=== PATIENT | male | born 1995 | race Two or more races ===

== ENCOUNTER 2017-05-08 15:56 | Emergency (ER) | payer OTHER ==
[~2017-05-08] VITALS: Ht 177.8 cm; Wt 59.0 kg
[2017-05-08 16:06] VITALS: BP 136/69
--- NOTE | 2017-05-08 16:11 | PHYS DOC ---
Adult General Chief Complaint Chief Complaint: LACERATION/AVULSION [facility] HPI Patient is a 22 year old male presents to the emergency department with a history of laceration to the right leg. Patient states he had a cup that he was placing tea in it when the cup broke and cut his leg just above the knee. He has a 0.5 cm laceration with bleeding controlled. Patient states his last tetanus is less than 5 years. He denies numbness, tingling or change in sensation to the lower leg. Review of Systems Review of Systems Constitutional: Denies fever or chills [] Eyes: Denies change in visual acuity, redness, or eye pain [] HENT: Denies nasal congestion or sore throat [] Respiratory: Denies cough or shortness of breath [] Cardiovascular: No additional information not addressed in HPI [] GI: Denies abdominal pain, nausea, vomiting, bloody stools or diarrhea [] : Denies dysuria or hematuria [] Musculoskeletal: Denies back pain or joint pain [] Integument: Denies rash or skin lesions. Laceration right leg Neurologic: Denies headache, focal weakness or sensory changes [] Endocrine: Denies polyuria or polydipsia [] Current Medications Current Medications Current Medications Medications (Trade) Dose Ordered [facility] Start Time Stop Time Status Last Admin Dose Admin Lidocaine/Sodium Bicarbonate (Buffered Lidocaine 1%) 20 ml 1X ONCE 05/08/17 16:15 05/08/17 16:16 DC Allergies Allergies Allergies Coded Allergies Type Severity Reaction Last Updated Verified No Known Drug Allergies 05/08/17 No Physical Exam Physical Exam Constitutional: Well developed, well nourished, no acute distress, non-toxic appearance. [] HENT: Normocephalic, atraumatic, bilateral external ears normal, oropharynx moist, no oral exudates, nose normal. [] Eyes: PERRLA, EOMI, conjunctiva normal, no discharge. [] Neck: Normal range of motion, no tenderness, supple, no stridor. [] Cardiovascular:Heart rate regular rhythm [] Lungs & Thorax: no respiratory distress noted Skin: Warm, dry, no erythema, no rash. Laceration right leg just above the knee 0.5 cm in length gapping. Extremities: No tenderness, no cyanosis, no clubbing, ROM intact, no edema. Peripheral pulses 2+ to right lower leg. Neurologic: Alert and oriented X 3, normal motor function, normal sensory function, no focal deficits noted. [] Psychologic: Affect normal, judgement normal, mood normal. [] Current Patient Data Vital Signs Vital Signs Date Time Temp Pulse Resp B/P (MAP) Pulse Ox O2 Delivery O2 Flow Rate FiO2 05/08/17 16:06 98.2 86 18 99 Room Air 98.2 EKG EKG [] Radiology/Procedures Radiology/Procedures [] Course & Med Decision Making Course & Med Decision Making Pertinent Labs and Imaging studies reviewed. (See chart for details) Keep the area clean and dry. Clean the site with soap and water twice a day and apply antibiotic to the site. Watch for signs and symptoms of infection: redness , warmth or tenderness or any yellow/greenish drainage if this should develop followup with PCP immediately. Otherwise followup in 01-18 for suture removal. Sign and symptoms to return to the emergency department has been provided. Patient agrees with discharge instructions, treatment regimen and followup recommendations. All questions and concerns have been answered at patients bedside. [] Dragon Disclaimer Dragon Disclaimer This electronic medical record was generated, in whole or in part, using a voice recognition dictation system. Departure Departure Impression: Primary Impression: Laceration Disposition: 01 HOME, SELF-CARE Condition: STABLE Patient Instructions: Laceration Care, Adult, [id number] Additional Instructions: Activity as tolerated Keep the area clean and dry. Clean the site with soap and water twice a day and apply antibiotic to the site. Watch for signs and symptoms of infection: redness, warmth or tenderness or any yellow/greenish drainage if this should develop followup with primary care provider immediately. Otherwise followup in 01-18 for suture removal. Return to the emergency department as needed for signs and symptoms that become worse. Laceration/Wound Repair Laceration/Wound Repair : Wound Location: lower extremity Wound's Depth, Shape: superficial Wound Length (cm): 0 Wound Explored: no foreign body removed Irrigated w/ Saline (ccs): 100 Betadine Prep?: Yes Anesthesia: 1% Lidocaine Volume Anesthetic (ccs): 4 Wound Debrided: minimal Wound Repaired With: sutures Suture Size/Type: 4:0, nylon Number of Sutures: 3 Progress 1% buffered lidocaine injected into the area 4 ml. Site irrigated with 100 ml NS with no foreign body noted. Site cleaned with betadine. Suture the area with 4-0 nylon with 3 interrupted sutures placed. Patient tolerated procedure well. Dressing applied by nursing staff. LINDA SANCHEZ APRN May 08, 2017 16:11
[2017-05-08] MEDS ORDERED: LIDOCAINE 1% / SOD BICARB 8.4% 20 ML VIAL. IJ ONE (16:15)
== END 2017-05-08 16:51 | disposition home or self-care (01) ==
LOC: ER 15:56
DX: S81.811A Laceration without foreign body, right lower leg, initial encounter (principal); W25.XXXA Contact with sharp glass, initial encounter; Y93.89 Activity, other specified; Y92.89 Other specified places as the place of occurrence of the external cause; Y99.8 Other external cause status
CPT/HCPCS: 12011; 99283-25